=== PATIENT | female | born 1960 | race Two or more races ===

== ENCOUNTER 2017-06-09 20:39 | Emergency (ER) | payer OTHER ==
[2017-06-09] MEDS ORDERED: SODIUM CHLORIDE 0.9% 1000 ML INFUS.BAG IV ONE (21:01)
--- NOTE | 2017-06-09 21:02 | PDOC ---
Rapid Medical Evaluation Time Seen by Provider: 06/09/17 20:54 Medical Evaluation: Allergies Allergy/AdvReac Type Severity Reaction Status Date / Time No Known Allergies Allergy Verified 03/05/17 19:36 06/09/17 20:55 I have performed a brief in-person evaluation of this patient. The patient presents with a chief complaint of: hx umbilical hernia surgery last fall, "hernia has come back", "bruising is new as of yesterday or today" Pertinent physical exam findings: ventral hernia with ecchymosis I have ordered the following: labs, CT The patient will proceed to the ED for further evaluation. Discharge Disposition - Diagnosis Hernia - Referrals - Patient Instructions - Post Discharge Activity
[2017-06-09 21:03] VITALS: BP 121/64; PULSE 95; TEMP 98.2; BMI 21.7
[2017-06-09 21:42] LABS: BASO % 0.4 % (0-2.0); EOS % 2.7 % (0-4.5); HEMATOCRIT 32.4 % (32.4-45.2); HEMOGLOBIN 11.1 GM/dL (10.7-15.3); LYMPH % 19.5 % (8-40); MCH 33.3 pg (25.7-33.7); MCHC 34.3 g/dl (32.0-36.0); MEAN CELL VOLUME 97.2 fl (80-96); MEAN PLT VOLUME 10.5 fl (7.5-11.1); MONO % 11.5 % (3.8-10.2); NEUT % 65.9 % (42.8-82.8); PLATELET COUNT 42 K/MM3 (134-434); RBC 3.33 M/mm3 (3.60-5.2); RDW 16.8 % (11.6-15.6); WHITE BLOOD COUNT 2.1 K/mm3 (4.0-10.0)
[2017-06-09 21:52] LABS: INR 1.35 (0.82-1.09); PROTHROMBIN TIME (PATIENT) 15.2 SEC (9.98-11.88)
[2017-06-09 21:54] LABS: ACTIVATED PTT 33.4 SECONDS (26.9-34.4)
[2017-06-09 22:01] LABS: ALBUMIN 2.3 g/dl (3.4-5.0); ALK PHOS 234 U/L (45-117); ANION GAP 6 (8-16); BILIRUBIN,TOTAL 1.8 mg/dL (0.2-1.0); BLOOD UREA NITROGEN 11 mg/dL (7-18); CALCIUM 7.1 mg/dL (8.5-10.1); CHLORIDE 97 mmol/L (98-107); CO2 32 mmol/L (21-32); CREATININE 0.6 mg/dL (0.55-1.02); GLUCOSE,RANDOM 158 mg/dL (74-106); POTASSIUM 3.4 mmol/L (3.5-5.1); SGOT/AST 116 U/L (15-37); SGPT/ALT 86 U/L (12-78); SODIUM 135 mmol/L (136-145); TOT PROT 7.9 g/dl (6.4-8.2)
== END 2017-06-09 23:34 | disposition left against medical advice (07) ==
LOC: JER 20:39
DX: K43.9 Ventral hernia without obstruction or gangrene (principal)
CPT/HCPCS: 36415; 80053; 85025; 85610; 85730; 86850; 86900; 86901; 99281-25